=== PATIENT | male | born 1990 | race Caucasian/White ===

== ENCOUNTER 2019-10-22 18:29 | Observation (INO) | payer SELFPAY ==
[~2019-10-22] VITALS: Ht 185.4 cm; Wt 70.0 kg
[~2019-10-22 18:29] MED LIST: BACTRIM DS1 TAB PO; LEVAQUIN500 MG PO; NAPROSYN500 MG OR; NAPROSYN500 MG PO; NO MEDS
--- NOTE | 2019-10-22 18:49 | NUR ---
PT SATS 98% RESP EVEN UNLABORED. LUNGS CTA. ADVISED OF WAIT TIME.
--- NOTE | 2019-10-22 18:50 | NUR ---
TO ROOM 14 VIA W/C
[2019-10-22 19:46] LABS: HEMATOCRIT 46.8 % (39.0-50.0); HEMOGLOBIN 16.2 g/dl (14.0-18.0); MEAN CELL VOLUME 93.4 fL CALC (80.0-100.0); MEAN CORPUSCULAR HGB 32.3 pG CALC (26.0-32.0); MEAN CORPUSCULAR HGB CONC 34.6 g/L CALC (32.0-36.0); NEUT# 2.32 thou/uL (1.82-7.42); RED BLOOD COUNT 5.01 mill/uL (4.70-6.10); RED CELL DISTRI WIDTH 13.2 % (11.5-15.5)
[2019-10-22 19:46] LABS: URINE BILIRUBIN - DIPSTICK NEGATIVE (NEGATIVE); URINE BLOOD DIPSTICK NEGATIVE (NEGATIVE); URINE COLOR YELLOW; URINE GLUCOSE - DIPSTICK NEGATIVE (NEGATIVE); URINE KETONE NEGATIVE (NEGATIVE); URINE LEUK ESTERASE NEGATIVE (NEGATIVE); URINE NITRITE - DIPSTICK NEGATIVE (Negative); URINE PROTEIN - DIPSTICK NEGATIVE (NEG-TRACE); URINE SPECIFIC GRAVITY <=1.005; URINE UROBILINOGEN - DIPSTICK 0.2 E.U./dL (0.2)
[2019-10-22 19:49] LABS: BARBITURATES NEGATIVE (NEGATIVE); COCAINE NEGATIVE (NEGATIVE); METHADONE NEGATIVE (NEGATIVE); OXCYCODONE NEGATIVE (NEGATIVE); TETRAHYDROCANNABIONOL POSITIVE (NEGATIVE); TRICYLIC ANTIDEPRESSANTS NEGATIVE (NEGATIVE)
--- NOTE | 2019-10-22 20:00 | NUR ---
RESTING QUIETLY AWAITING TEST RESULTS.
[2019-10-22 20:04] LABS: ALKALINE PHOSPHATASE 158 u/l (38-126); ANION GAP 19 (6-22 (CALC)); BILIRUBIN, TOTAL 0.4 mg/dL (0.0-1.4); BUN 10 mg/dL (9-20); BUN/CREATININE RATIO 12 (12-20 (CALC)); CARBON DIOXIDE 20 mmol/l (22-30); CHLORIDE 103 mmol/l (95-108); CREATININE 0.9 mg/dL (0.7-1.3); GFR > 60 ML/MIN (>=60 (CALC)); GFR FOR AFR.AMER. > 60 ML/MIN (>=60 (CALC)); POTASSIUM 3.9 mmol/l (3.5-5.1); SGOT/AST 49 u/l (17-59); SODIUM 138 mmol/l (137-146); TOTAL PROTEIN 8.5 g/dL (6.3-8.2)
--- NOTE | 2019-10-22 21:00 | NUR ---
BACK PAIN SLIGHTLY IMPROVED. VSS.
--- NOTE | 2019-10-22 21:15 | NUR ---
APPEARS RELATIVELY COMFORTABLE AT PRESENT.
[2019-10-22 21:19] LABS: MYOGLOBIN 48 ng/mL (0 - 121)
--- NOTE | 2019-10-22 22:00 | NUR ---
DISCUSSED ADMISSION PLANS AND CURRENT FINDINGS. NAD. ANTOINE
--- NOTE | 2019-10-22 23:03 | NUR ---
Admission Note Report Given to: LIANET CASTRO Transported by: Wheelchair Stretcher Transported with: X Nurse Transporter X Patent IV O2 [employer] Chair AMBULATED TO ROOM 16.
--- NOTE | 2019-10-22 23:05 | NUR ---
REPORT FROM LIANET RO. ASSUMED PT. CARE.
--- NOTE | 2019-10-22 23:57 | NUR ---
PT. RESTING IN BED IN NO DISTRESS. PROVIDED WITH TURKEY SANDWICH AND A GATORADE. DENIES COMPLAINTS OF PAIN OR OTHER NEAD AT THIS TIME. ORIENTED TO CALL LIGHT AND AREA. WILL CONINUE TO MONITOR.
[2019-10-23] VITALS: BP 113/64
[2019-10-23 02:00] VITALS: BP 151/75
--- NOTE | 2019-10-23 03:50 | NUR ---
PT. REMAINS RESTING IN BED WITH EYES CLOSED IN NO DISTRESS. CALL LIGHT REMAINS WITHIN REACH. VOICES NO COMPLAINTS OR NEEDS. WILL CONTINUE TO MONITOR.
[2019-10-23 04:03] VITALS: BP 114/68; BP 135/69
--- NOTE | 2019-10-23 05:45 | NUR ---
PT. UP TO RESTROOM AT THIS TIME. AMBULATORY WITH STEADY GAIT TO AND FROM RESTROOM. DENIES COMPLAINTS OF PAIN OR NEED AT THIS TIME. WILL CONTINUE TO MONITOR.
[2019-10-23 07:57] VITALS: BP 115/57
[2019-10-23 08:22] VITALS: BP 115/57
[2019-10-23] MEDS ORDERED: MOTRIN800 MG PO (08:34)
[2019-10-23] MEDS ORDERED: AMOXICILLIN500 M2 PO (08:34)
--- NOTE | 2019-10-23 12:19 | NUR ---
PT was discharged home with mother at [phone] . Denied any discmofort. Educated pt on discharge instructions and f/u with primary care with new prescriptions. Pt verbalized understanding.
== END 2019-10-23 09:55 | disposition home or self-care (01) | DRG 641 ==
LOC: ED 18:29 → ED-I 20:40 → ED 20:49 → ICU 20:50
PROVIDERS: Emergency Medicine; ADMIT Internal Medicine; ATTEND Internal Medicine
DX: E87.3 Alkalosis (principal); J02.0 Streptococcal pharyngitis; S29.9XXA Unspecified injury of thorax, initial encounter; F10.10 Alcohol abuse, uncomplicated; V89.9XXA Person injured in unspecified vehicle accident, initial encounter
CPT/HCPCS: Q9967